=== PATIENT | male | born 1975 | race Caucasian/White ===

== ENCOUNTER → 2020-05-18 | Outpatient (CLI) | payer OTHER, SELFPAY ==
--- NOTE | ~2020-05-18 | MR_ITS ---
EXAMINATION: MR forearm LT wo/w con, MR wrist LT wo/w con DATE: 05/18/2020 14:38 INDICATION: Localized swelling, mass and lump at the radial aspect of the distal left forearm. TECHNIQUE: 1. Magnetic resonance imaging (MRI) of the left wrist was performed without and with 20 mL Multihance intravenous contrast. Sequences performed include axial PD-weighted FSE, PD-weighted FS FSE and T1-w eighted FSE, coronal PD-weighted FS FSE and T1-weighted SE, sagittal PD-weighted FS FSE and PD-weight ed FSE and postcontrast axial and coronal T1-weighted FS FSE . 2 . MRI of the left forearm was performed without and with 20 mL Multihance intravenous contrast util izing the same contrast bolus. Sequences included axial, sagittal and coronal T1-weighted FSE and T2- weighted FS FSE and postcontrast axial and coronal T1-weighted FS FSE. COMPARISON: Left wrist radiographs dated 04/26/2017 FINDINGS: Evaluation mildly limited by motion artifact or blurring to some degree on nearly all sequences inclu ding multiple repeated sequences. Intrinsic ligaments: The scapholunate and lunotriquetral ligaments are normal. Triangular fibrocartilage complex (TFCC): The triangular fibrocartilage including its foveal and styloid attachments as well as the dorsal and volar radioulnar ligaments are normal. The ulnotriquetral ligament is normal. The extensor carpi ulna ris tendon sheath is normal. Extensor wrist: There is mild fusiform thickening of the tensor carpi ulnaris tendon at the level of the tip of the u lnar styloid process as well as of the extensor pollicis brevis tendon at the level of the tip of the radial styloid process consistent with mild tendinopathy without discrete tear. Remaining extensor t endons of the wrist are normal. No tenosynovitis. Flexor wrist: The flexor tendons of the wrist are normal. No abnormality in the carpal tunnel with normal median n erve. Guyon's canal: Guyon's canal including the ulnar nerve and artery are normal. Bones/other: Bone alignment is normal. No fracture or avascular necrosis or pathologic marrow replacing process. S mall degenerative cyst versus erosion along the ulnar side of the proximal articular surface of the l unate. Mild osteoarthritis at the wrist, distal radioulnar and midcarpal joints. Musculature in the f inalized mid to distal forearm appears unremarkable. No abnormal masses or fluid collections identifi ed deep to the marker indicating the region of concern which lies along the radial margin of the dist al radius. No abnormally enhancing lesions identified at the left wrist or forearm. IMPRESSION: 1. Mild tendinopathy of the extensor carpi ulnaris and extensor pulses brevis tendons without discret e tears or tenosynovitis. 2. No abnormal masses, fluid collections or abnormally enhancing lesions identified to explain the re ported palpable abnormality along the radial aspect of the wrist/distal forearm. The marker indicatin g the region of concern overlies the region of fusiform thickening of the extensor pollicis brevis te ndon which could potentially account for the palpable abnormality. Reviewed, dictated and finalized at location A. 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 Mild tendinopathy of the extensor carpi ulnaris and extensor pulses brevis t endons without discrete tears or tenosynovitis. 2. No abnormal masses, fluid collections or abnormally enhancing lesions identi fied to explain the reported palpable abnormality along the radial aspect of th e wrist/distal forearm. The marker indicating the region of concern overlies th e region of fusiform thickening of the extensor pollicis brevis tendon which co uld potentially account for the palpable abnormality.
[2020-05-18 13:29] LABS: Estimated Glomerular Filt Rate > 60
== END | disposition home or self-care (01) ==
PROVIDERS: PCP Plastic Surgery; Visit Provider Plastic Surgery
DX: R22.32 Localized swelling, mass and lump, left upper limb (principal)
CPT/HCPCS: 73220; 73223; A9577

== ENCOUNTER 2020-07-06 12:20 | Outpatient (CLI) | payer OTHER, SELFPAY ==
--- NOTE | ~2020-07-06 | US_ITS ---
EXAMINATION: US wrist asp inj w image LT DATE: 07/06/2020 14:23 INDICATION: Dorsal compartment syndrome TECHNIQUE: A time-out was performed to verify the patient's name, date of , and procedure to b e performed. The procedure including the risks, benefits, and alternatives was discussed with the pat ietino. Risks discussed included bleeding, infection and allergic reaction. The patient understood the risks and agreed to proceed. The skin overlying the radial side of the left wrist was prepped and dr aped in usual sterile fashion. Anesthetic was administered with 1% lidocaine subcutaneously. Utilizi ng ultrasound guidance 25 G needle was advanced under fluoroscopic guidance into the the tendon sheat h of the first dorsal compartment and additional 0.5 mL of 1% lidocaine was injected into the small a mount of anechoic fluid surrounding the tendon. Subsequently a second 20 5G needle was advanced utili zing ultrasound guidance into the small tenosynovial fluid collection the first dorsal compartment an d 0.75 mL of 40 mg/mL and analog was injected for a total dose of 30 mg Kenalog. There were no immedi ate complications. FINDINGS: Real-time ultrasound images demonstrate a very small crescentic anechoic tear synovial fluid collecti on along side the extensor pollicis brevis tendon. Subsequent images demonstrate first the lidocaine needle and subsequently the needle for steroid injection within the small amount of tenosynovial flui d in the first dorsal compartment. IMPRESSION: 1. Successful ultrasound-guided injection of local anesthetic and steroid into the tendon sheath of t he first dorsal compartment where there was already a small amount of fluid consistent with mild teno synovitis. Reviewed, dictated and finalized at location A. DENTAL ASSISTANT IMPRESSION: 1. Successful ultrasound-guided injection of local anesthetic and steroid into the tendon sheath of the first dorsal compartment where there was already a sma ll amount of fluid consistent with mild tenosynovitis.
== END 2020-07-06 12:21 | disposition home or self-care (01) ==
LOC: ANHIMG 12:30
PROVIDERS: PCP Family Medicine Adolescent Medicine; Visit Provider Plastic Surgery
DX: T79.A12A Traumatic compartment syndrome of left upper extremity, initial encounter (principal)
CPT/HCPCS: 20606; J3301

== ENCOUNTER → 2022-02-18 11:58 | Outpatient (CLI) | payer OTHER, SELFPAY ==
--- NOTE | ~2022-02-18 | XR_ITS ---
EXAM: XR knee RT 2V DATE: 02/18/2022 12:08 HISTORY: M25.561 - Pain in right knee . COMPARISON: None available. FINDINGS: Normal mineralization. No fracture or dislocation. Subtle somewhat serpiginous, sclerotic opacities surrounding an area of relative lucency in the metadiaphysis of the distal right femur. Mil d medial joint space narrowing. Tricompartmental osteophytosis, mild in the medial and lateral compar tments and moderate in the patellofemoral compartment. No erosion or periosteal change. Small-volume joint fluid. IMPRESSION: Possible metadiaphyseal medullary lesion which may represent artifact, bone infarct or ot her lesion such as enchondroma, consider MRI of the distal right femur for further evaluation. Tricom partmental right knee osteoarthritis, moderate in the patellofemoral compartment. Reviewed, dictated and finalized at [facility]. IMPRESSION: Possible metadiaphyseal medullary lesion which may represent artifa ct, bone infarct or other lesion such as enchondroma, consider MRI of the dista l right femur for further evaluation. Tricompartmental right knee osteoarthriti s, moderate in the patellofemoral compartment.
== END ==
PROVIDERS: PCP Family Medicine Adolescent Medicine; Visit Provider Physician Assistant
DX: M25.561 Pain in right knee (principal); M17.11 Unilateral primary osteoarthritis, right knee
CPT/HCPCS: 73560

== ENCOUNTER 2022-03-04 12:19 | Outpatient (CLI) | payer OTHER, SELFPAY ==
--- NOTE | ~2022-03-04 | MR_ITS ---
EXAMINATION: MR femur RT wo/w con DATE: 03/04/2022 13:45 INDICATION: Right knee pain. Abnormal right knee x-ray. TECHNIQUE: Magnetic resonance imaging (MRI) of the right thigh was performed without and with 20 mL M ultihance intravenous contrast. Sequences included axial, sagittal and coronal T1-weighted FSE; axia l, sagittal and coronal fluid sensitive FSE STIR T2-weighted FS FSE, axial T1-weighted FS FSE and pos t contrast axial, sagittal and coronal T1-weighted FS FSE were also obtained. The contralateral left thigh is included on the coronal images. The proximal femur cephalad to the lesser trochanters are ex cluded from the [id number]. COMPARISON: Right knee radiograph dated 02/18/2022 FINDINGS: There are bone infarcts in the distal metaphyses and distal diaphyses of the left and right femurs ch aracterized by a peripheral serpiginous pattern of low signal and high T2 signal with central T1 hype rintense saturating fatty marrow. No other concerning bone lesions identified. Physiologic amount flu id in the bilateral knee joints. Assessment of the knee is limited relative to a standard MRI of the knee due to the significantly larger sqrnv-of-fmol of imaging and the location of the knee at the per iphery of the field of imaging which increases some magnetic benitez artifact. There is no evident int ernal derangement with intact appearing menisci and stabilizing ligaments. There is some high-grade c hondromalacia with subarticular cystic change along the lateral patellar facets at the right knee. Th ere is increased signal at the superficial suprapatellar fat pad at the right knee which can be seen with fat pad impingement syndrome. Normal muscle signal and no asymmetric muscle atrophy at the bilat eral thighs. No abnormally enhancing lesions identified. IMPRESSION: 1. 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 2. 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 3. Increased signal at the right superficial suprapatellar fat pad which can be seen with fat pad imp ingement syndrome. Reviewed, dictated and finalized at location B. IMPRESSION: 1. Bone infarcts in the distal diaphyseal and metaphyseal regions of the bilate ral femurs which accounts for the appearance of concern on the prior radiograph s. 2. 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 3. Increased signal at the right superficial suprapatellar fat pad which can be seen with fat pad impingement syndrome.
== END 2022-03-04 12:20 | disposition home or self-care (01) ==
LOC: ANHIMG 12:34
PROVIDERS: PCP Family Medicine Adolescent Medicine; Visit Provider Physician Assistant
DX: M22.41 Chondromalacia patellae, right knee (principal); M87.9 Osteonecrosis, unspecified
CPT/HCPCS: 73720; A9577

== ENCOUNTER → 2023-02-24 13:43 | Outpatient (CLI) | payer OTHER, SELFPAY ==
--- NOTE | ~2023-02-24 | XR_ITS ---
Clinical Indication: Abnormal chest x-ray PA and lateral views of the chest: Comparison: None Findings: The lungs are clear, without evidence of focal consolidation or pleural effusion. Cardiome diastinal silhouette is within normal limits. Bones and soft tissues are unremarkable. Impression: Normal chest. Reviewed, dictated and finalized at [facility]. Impression: Normal chest.
== END ==
PROVIDERS: PCP Family Medicine Adolescent Medicine; Visit Provider Family Medicine Adolescent Medicine
DX: R91.8 Other nonspecific abnormal finding of lung field (principal)
CPT/HCPCS: 71046

== ENCOUNTER → 2023-04-17 15:44 | Outpatient (CLI) | payer OTHER, SELFPAY ==
--- NOTE | ~2023-04-17 | XR_ITS ---
EXAMINATION: XR abdomen/kub 1V DATE: 04/17/2023 16:46 INDICATION: 5 days of right-sided abdominal pain TECHNIQUE: A supine view of the abdomen on 2 radiographs was obtained. COMPARISON: None. FINDINGS: Moderate amount of stool scattered throughout the colon. No dilated loops of gas-filled bowel to sugg est obstruction.. No evident urolithiasis. Visualized portions of the lung bases are clear. Moderate to severe lower lumbar facet osteoarthritis. IMPRESSION: 1. Normal bowel gas pattern. Reviewed, dictated and finalized at location A. 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
== END ==
PROVIDERS: PCP Family Medicine Adolescent Medicine; Visit Provider Family Medicine Adolescent Medicine
DX: R10.9 Unspecified abdominal pain (principal)
CPT/HCPCS: 74018

== ENCOUNTER 2024-02-28 07:50 | Outpatient (CLI) | payer OTHER, SELFPAY ==
--- NOTE | ~2024-02-28 | US_ITS ---
US abdomen limited INDICATION: Right upper quadrant pain PROCEDURE: Realtime right upper abdominal ultrasound. COMPARISON: No prior studies for comparison. FINDINGS: The pancreas is normal without focal mass or pancreatic ductal dilation. There is a focal echogenic 1.2 cm liver mass. There is normal directional flow in the portal vein. The gallbladder is normal without stones, gallbladder wall thickening or pericholecystic fluid. Comm on bile duct measures 4 mm. No sonographic Thao's sign. IMPRESSION: 1: Echogenic 1.2 cm liver mass. In the absence of known malignancy this likely represents a benign he mangioma. If there is known malignancy, correlation with dynamic contrast-enhanced CT or MRI recommen ded. Reviewed, dictated and finalized at location B. IMPRESSION: 1: Echogenic 1.2 cm liver mass. In the absence of known malignancy this likely represents a benign hemangioma. If there is known malignancy, correlation with dynamic contrast-enhanced CT or MRI recommended.
== END 2024-02-28 07:51 | disposition home or self-care (01) ==
PROVIDERS: PCP Family Medicine Adolescent Medicine; Visit Provider Family Medicine
DX: R16.0 Hepatomegaly, not elsewhere classified (principal)
CPT/HCPCS: 76705

== ENCOUNTER 2024-03-25 00:40 | Day surgery (SDC) | payer OTHER, SELFPAY ==
[2024-03-13 15:16] VITALS: BMI 38.0
[2024-03-25 10:00] VITALS: BP 123/75; PULSE 84; RESP 16; TEMP 36.1; O2SAT 100; BMI 37.5
[2024-03-25] MEDS: LACTATED RINGERS 1,000 ML 150 ML IV CONT (10:28)
--- NOTE | 2024-03-25 10:49 | P.PNAN_ITS ---
Anes - Initial Pre Proc Eval Procedure: Operation Date: 03/25/24 11:00 Proposed Procedures p Esophagogastroduodenoscopy & Colonoscopy - Burt Lawrence MD Date/Time: 03/25/24 10:49 Surgeon: Burt Lawrence MD Pre Op Diagnosis: RUQP/ neoplasm screening Patient Data Age: 48 Gender: M Height: 1.83 m Weight: 125.4 kg Last Vital Signs Temp 36.1 C L 03/25/24 10:00 Pulse 84 03/25/24 10:00 Resp 16 03/25/24 10:00 BP 123/75 03/25/24 10:00 Pulse Ox 100 03/25/24 10:00 O2 Del Method Room Air 03/25/24 10:00 Allergies Allergy/AdvReac Type Severity Reaction Status Date / Time diclofenac AdvReac Intermediate rash Verified 03/25/24 10:04 Home Medications Medication Instructions Recorded Confirmed Type tadalafil 5 mg tablet (Cialis) 5 mg PO DAILY PRN sexual activity 08/27/23 03/25/24 Rx #30 tabs cyclobenzaprine 10 mg tablet 10 mg PO TID PRN muscle spasm #20 02/28/24 03/25/24 Rx tabs ketoconazole 2 % topical cream 2 applic topical BID 03/13/24 03/25/24 History thiamine HCl (vitamin B1) 250 mg 250 mg PO DAILY 03/13/24 03/25/24 History tablet vitamin D3 125 mcg (5,000 2 cap PO DAILY 03/13/24 03/25/24 History unit)-vitamin K2 180 mcg capsule (K2-D3 Max) ketoconazole 2 % shampoo See Rx Instructions .Route 03/21/24 03/25/24 Rx .COMPLEX #120 mL lorazepam 1 mg tablet See Rx Instructions PO DAILY 03/25/24 03/25/24 History Anxiety Patient hx anesthesia problems: none Family hx anesthesia problems: none Results Review: All pre-operative results and documents have been reviewed as part of the pre- operative evaluation. [facility]LY [facility] Past Medical History Medical History (Updated 03/25/24 @ 10:50 by Iván Bone MD) Claustrophobia Family history of liver cancer Generalized anxiety disorder History of gout Liver lesion Surgical History Surgical History History of appendectomy 1986 Family History Family History Father Diabetes mellitus Acute myocardial infarction Heart disease Depression Family history of arthritis Hypertension Mother Pulmonary embolus Benign brain tumor Asthma Family history of arthritis Grandparent Acute myocardial infarction Other Arthritis Hyperlipidemia Social History Social History Smoking packs per day: 3 Smoking cigarettes per day: 60.0 Smoking status: Former smoker Tobacco type: cigarettes Second hand tobacco smoke exposure: No Smoking end date: 06/10/05 Alcohol intake: current Drinks per week: 24 Substance use: never Substance use type: does not use Living arrangements: with family Occupation/Education: occupation Gender identity (if verbalized by the patient): Male Sexual Orientation (if Verbalized by the Patient): Straight or Heterosexual Spiritual care concerns: No Agree to blood products: Yes Anes - Eval Final PreProcedure Day of Procedure 03/25/24 10:49 Patient weight: obese Heart: regular rate and rhythm Lungs: clear to auscultation Airway: Mallampati scale class II Neurological: alert and oriented Last oral intake: >/= 8 hours ASA classification: III Emergent: no Anesthetic plan: proceed Anesthesia type and monitoring: general GIVS and standard monitoring Results Review: All pre-operative results and documents have been reviewed as part of the pre- operative evaluation. Informed Consent: The patient's anesthetic plan and its attendant risks and benefits were discussed with the patient/family/POA. Questions were solicited and answers provided to the satisfaction of the patient/family/POA.
--- NOTE | 2024-03-25 11:38 | PM.IMHP ---
H&P: HPI History of Present Illness Date/Time: 03/25/24 11:38 Chief Complaint: Abdominal pain -screening colonoscopy Narrative: this patient has be seen in our office for recurrent right upper quadrant pain of unclear etiology. In addition, the patient has never had a colonoscopy and is in the right age group for his 1st screening colonoscopy. [facility] Past Medical History Medical History (Updated 03/25/24 @ 11:40 by Burt Lawrence MD) Claustrophobia Family history of liver cancer Generalized anxiety disorder History of gout Liver lesion Surgical History Surgical History History of appendectomy 1986 Family History Family History Father Diabetes mellitus Acute myocardial infarction Heart disease Depression Family history of arthritis Hypertension Mother Pulmonary embolus Benign brain tumor Asthma Family history of arthritis Grandparent Acute myocardial infarction Other Arthritis Hyperlipidemia Social History Social History Smoking packs per day: 3 Smoking cigarettes per day: 60.0 Smoking status: Former smoker Tobacco type: cigarettes Second hand tobacco smoke exposure: No Smoking end date: 06/10/05 Alcohol intake: current Drinks per week: 24 Substance use: never Substance use type: does not use Living arrangements: with family Occupation/Education: occupation Gender identity (if verbalized by the patient): Male Sexual Orientation (if Verbalized by the Patient): Straight or Heterosexual Spiritual care concerns: No Agree to blood products: Yes Meds Home Medications and Allergies Home Medications Medication Instructions Recorded Confirmed Type tadalafil 5 mg tablet (Cialis) 5 mg PO DAILY PRN sexual activity 08/27/23 03/25/24 Rx #30 tabs cyclobenzaprine 10 mg tablet 10 mg PO TID PRN muscle spasm #20 02/28/24 03/25/24 Rx tabs ketoconazole 2 % topical cream 2 applic topical BID 03/13/24 03/25/24 History thiamine HCl (vitamin B1) 250 mg 250 mg PO DAILY 03/13/24 03/25/24 History tablet vitamin D3 125 mcg (5,000 2 cap PO DAILY 03/13/24 03/25/24 History unit)-vitamin K2 180 mcg capsule (K2-D3 Max) ketoconazole 2 % shampoo See Rx Instructions .Route 10/31/24 11/04/24 Rx .COMPLEX #120 mL lorazepam 1 mg tablet See Rx Instructions PO DAILY 03/25/24 03/25/24 History Anxiety Allergies Allergy/AdvReac Type Severity Reaction Status Date / Time diclofenac AdvReac Intermediate rash Verified 03/25/24 10:04 Vital Signs Vital Signs - 24 hr 03/25/24 10:00 Temperature 96.9 F L Pulse Rate 84 Respiratory Rate 16 Blood Pressure 123/75 Pulse Oximetry 100 Oxygen Delivery Room Air Assessment and Plan Assessment and plan (1) Abdominal pain, RUQ (right upper quadrant): Code(s): R10.11 - Right upper quadrant pain Status: Acute Assessment and Plan: The patient is deemed a good candidate for the procedures. Consent signed. Will proceed. (2) Screening for malignant neoplasm of colon: Code(s): Z12.11 - Encounter for screening for malignant neoplasm of colon Status: Acute
[2024-03-25] MEDS: BENZOCAINE (*SP) 60 ML SPRAY CAN (HURRICAINE) 1 SPRAY MUCOUS MEM (12:06)
--- NOTE | 2024-03-25 12:06 | SUR.OPER ---
EGD END 1200 COLONOSCOPY START 1208
[2024-03-25 13:50] VITALS: BP 111/75; PULSE 70; RESP 16; O2SAT 100
[2024-03-25 14:00] VITALS: BP 137/95; PULSE 78; RESP 18; O2SAT 100
[2024-03-25 14:10] VITALS: BP 141/86; PULSE 60; RESP 19; O2SAT 100
--- NOTE | 2024-03-25 15:20 | SUR.PHASEII ---
Pt stated will have MRI in coming month. Pt given MRI clip safety sheet and educated on informing MRI staff of clips placed in colon. Pt stated understanding.
== END 2024-03-25 14:44 | disposition home or self-care (01) ==
PROVIDERS: PCP Family Medicine Adolescent Medicine; Referring Provider Nurse Practitioner Family; Visit Provider Internal Medicine Gastroenterology
PROC: 0DJ08ZZ Inspection of Upper Intestinal Tract, Via Natural or Artificial Opening Endoscopic (ICD-10-PCS; CPT 43235; principal; 2024-03-25 11:00)
DX: Z12.11 Encounter for screening for malignant neoplasm of colon (principal); D12.2 Benign neoplasm of ascending colon; D12.5 Benign neoplasm of sigmoid colon; D12.7 Benign neoplasm of rectosigmoid junction; K57.30 Diverticulosis of large intestine without perforation or abscess without bleeding; K22.70 Barrett's esophagus without dysplasia; K62.1 Rectal polyp; K29.50 Unspecified chronic gastritis without bleeding; K31.89 Other diseases of stomach and duodenum; F40.240 Claustrophobia; F41.9 Anxiety disorder, unspecified; K76.9 Liver disease, unspecified; E66.9 Obesity, unspecified; Z68.37 Body mass index [BMI] 37.0-37.9, adult; Z98.890 Other specified postprocedural states; Z87.891 Personal history of nicotine dependence; Z80.0 Family history of malignant neoplasm of digestive organs; Z82.49 Family history of ischemic heart disease and other diseases of the circulatory system
CPT/HCPCS: 43239; 45390; 45381; 88305; J2003; J2704; J7120

== ENCOUNTER 2024-05-02 15:28 | Outpatient (CLI) | payer OTHER, SELFPAY ==
--- NOTE | ~2024-05-02 | MR_ITS ---
EXAMINATION: MR abdomen wo/w con DATE: 05/02/2024 16:20 INDICATION: Liver disease, unspecified. Liver mass. TECHNIQUE: Magnetic resonance imaging (MRI) of the abdomen was performed without and with 20 mL Multi Romain intravenous contrast. COMPARISON: Abdomen ultrasound 02/28/2024 FINDINGS: There is a 13 mm mass right hepatic lobe with interrupted peripheral puddling of contrast, consistent with a hemangioma. The gallbladder, spleen, pancreas, adrenal glands, and kidneys are normal. There are no dilated loops of bowel. There are no pathologically enlarged lymph nodes. There is no free int raperitoneal fluid. IMPRESSION: 1. 13 mm hemangioma in the liver. Reviewed, dictated and finalized at location A. ER CASING
== END 2024-05-02 15:29 | disposition home or self-care (01) ==
PROVIDERS: PCP Family Medicine Adolescent Medicine; Visit Provider Nurse Practitioner Family
DX: D18.03 Hemangioma of intra-abdominal structures (principal); K76.9 Liver disease, unspecified
CPT/HCPCS: 74183; A9577

== ENCOUNTER 2024-06-04 16:41 | Outpatient (CLI) | payer OTHER, SELFPAY ==
--- NOTE | ~2024-06-04 | XR_ITS ---
XR wrist LT min 3V Ordering provider: Bryce Garrido MD History: . M25.532 - Pain in left wrist . Comparison: None. FINDINGS: BONES: No definite acute fracture or dislocation. No definite scaphoid fracture. Lucency is seen pos teriorly in the lateral view in the triquetral bone. Evaluation for tenderness in the area advised. JOINT SPACES: Well maintained. SOFT TISSUES: Normal. IMPRESSION: No definite acute osseous abnormality left wrist. Possible lucency in the posterior triquetral bone. Clinical correlation advised. Reviewed, dictated and finalized at location A. SUPERVISING TECHNICAL OPERATOR IMPRESSION: No definite acute osseous abnormality left wrist. Possible lucency in the poste rior triquetral bone. Clinical correlation advised.
== END 2024-06-04 16:42 | disposition home or self-care (01) ==
PROVIDERS: PCP Family Medicine Adolescent Medicine; Visit Provider Plastic Surgery
DX: M25.532 Pain in left wrist (principal)
CPT/HCPCS: 73110

== ENCOUNTER 2024-06-28 12:57 | Outpatient (CLI) | payer OTHER, SELFPAY ==
--- NOTE | ~2024-06-28 | MR_ITS ---
EXAMINATION: MR wrist LT wo/w con DATE: 06/28/2024 14:04 INDICATION: Evaluate left wrist infection versus gout or pseudogout. TECHNIQUE: Magnetic resonance imaging (MRI) of the left wrist was performed without intravenous contr ast. Sequences performed include axial PD-weighted FSE and PD-weighted FS FSE, coronal PD-weighted FS FSE and T1-weighted SE, and sagittal PD-weighted FS FSE and PD-weighted FSE. COMPARISON: None FINDINGS: Intrinsic ligaments: The dorsal and central components of the scapholunate ligament are normal. There is a partial tear of the volar component of the scapholunate ligament. The lunotriquetral ligament is normal. Triangular fibrocartilage complex (TFCC): There is a partial thickness tear along the proximal articular surface of the radial side of the cent ral fibrocartilaginous disc of the triangular fibrocartilage complex. The radial, foveal and ulnar st yloid attachments remain intact. The dorsal and volar radioulnar ligaments are normal. The ulnar mary ateral ligament, ulnotriquetral ligament and meniscal homologue are normal. The extensor carpi ulnari s tendon sheath is normal. Extensor wrist: Mild tenosynovitis and the first dorsal compartment with tendinopathy and partial split tearing of th e abductor pollicis longus tendon distal to the level of the radial styloid process. There is associa adebayo tendinopathy and longitudinal split tearing of the tendon. The remaining extensor tendons of the wrist are normal. Flexor wrist: The flexor tendons of the wrist are normal. No abnormality in the carpal tunnel with normal median n erve. Guyon's canal: Guyon's canal including the ulnar nerve and artery are normal. Bones/other: Bone alignment is normal. No fracture or pathologic marrow replacing process. Subarticular cystic nic nge at the ulnar side of the proximal articular surface of the lunate adjacent to be previous noted p artial tear of the triangular fibrocartilage, both findings which can be seen in the setting of ulnoc arpal impaction. Mild osteoarthritis with mild partial-thickness cartilage loss resulting in mild non uniform joint space narrowing at the distal radioulnar joint. Joint spaces are otherwise normal with no focal cartilage defects appreciated. No cortical erosions. There is diffuse enhancing synovitis th roughout the midcarpal joint without associated joint effusion. IMPRESSION: 1. Nonspecific enhancing synovitis throughout the midcarpal joint. 2. Tenosynovitis in the first dorsal compartment with tendinopathy and longitudinal split tearing of the abductor pollicis longus tendon. 3. Partial tear of the central fibrocartilaginous disc of the triangular fibrocartilage complex and s ubarticular cystic change along the ulnar side of the lunate, both findings which can be seen in sett ing of ulnocarpal impaction. 4. Mild distal radioulnar joint osteoarthritis. Reviewed, dictated and finalized at location B. [facility] IMPRESSION: 1. Nonspecific enhancing synovitis throughout the midcarpal joint. 2. Tenosynovitis in the first dorsal compartment with tendinopathy and longitud inal split tearing of the abductor pollicis longus tendon. 3. Partial tear of the central fibrocartilaginous disc of the triangular fibroc artilage complex and subarticular cystic change along the ulnar side of the barbara ate, both findings which can be seen in setting of ulnocarpal impaction. 4. Mild distal radioulnar joint osteoarthritis.
--- OUTSIDE RECORDS SUMMARY | 2024-06-28 13:03 | XMS_ITS | Clinical Summary ---
Author Organization [employer] [facility] Address [address] [facility] Attn: Scarlet Prelude ADT [place] [address] Care Team Providers Care Marriage Counselor Minister Name Role Phone Unavailable Primary Care Provider Unavailabl e Allergies No known active allergies Medications ketoconazole (NIZORAL) 2 % Shampoo USE DIRECTED TWICE DAILY 120 mL 1 06/04/2022 1:24 PM COMPLIANCE TECHNICIAN 05/06/20 22 Active atorvastatin (LIPITOR) 20 mg tablet TAKE ONE TABLET BY MOUTH ONCE DAILY 90 Tablet 1 11/22/2022 11:56 AM CDT 11/21/19 23 Active indomethacin (INDOCIN) 50 mg capsule Take 1 Capsule (50 mg) by mouth 3 times daily. Administer with food or milk. 50 Capsule 12/06/2022 4:10 PM CDT 12/06/19 23 Active meloxicam (MOBIC) 7.5 mg tablet Take 1 Tablet (7.5 mg) by mouth daily. 30 Tablet 1 01/29/2023 1:09 PM CDT 01/27/20 23 Active cyclobenzaprin e (FLEXERIL) 10 mg tablet Take 1 Tablet (10 mg) by mouth 3 times daily as needed for spasm. 30 Tablet 06/10/2023 2:08 PM COMPLIANCE TECHNICIAN 06/08/19 24 Active HYDROcodone-ac etaminophen (NORCO) 5-325 mg tablet TAKE 1 TABLET BY MOUTH EVERY 6 HOURS NEEDED FOR PAIN 20 Tablet 06/10/2023 2:08 PM COMPLIANCE TECHNICIAN 06/08/19 24 Active naproxen (NAPROSYN) 500 mg tablet Take 1 Tablet (500 mg) by mouth 2 times daily as needed for pain 30 Tablet 06/10/2023 2:08 PM COMPLIANCE TECHNICIAN 06/08/19 24 Active tirzepatide (Mounjaro) 2.5 mg/0.5 mL Pen Injector Inject 2.5 mg by subcutaneous injection every 7 days. 2 mL 07/28/19 24 Active tadalafil (CIALIS) 5 mg tablet Take 1 Tablet (5 mg) by mouth 1 time daily as needed for sexual activity. 30 Tablet 10 12/24/2023 12:19 PM CDT 08/27/19 24 Active ketoconazole (NIZORAL) 2 % Cream Apply to the back of knees once daily until resolution 60 Gram 02/09/2024 4:28 PM CDT 02/09/20 24 Active nystatin (MYCOSTATIN) 100,000 unit/gram Cream APPLY TO THE AFFECTED AREAS TWICE DAILY UNTIL HEALING IS COMPLETE. 30 Gram 02/16/2024 3:10 PM CDT 02/16/20 24 Active LORazepam (ATIVAN) 1 mg tablet Take 1 tablet (1mg) by mouth in the morning and 2 tablets (2 mg) in the evening. 90 Tablet 5 06/20/2024 9:33 AM COMPLIANCE TECHNICIAN 03/21/20 24 Active cyclobenzaprin e (FLEXERIL) 10 mg tablet Take 1 Tablet (10 mg) by mouth 3 times daily as needed for muscle spasms. 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 90 Tablet 1 04/21/2024 12:00 PM COMPLIANCE TECHNICIAN 03/26/20 24 Active hydrocortisone (PROCTOZONE-HC ) 2.5 % cream with perineal applicator Apply rectally once daily as needed for hemorrhoids. 30 Gram 05/28/2024 11:37 AM COMPLIANCE TECHNICIAN 05/21/20 24 Active traMADoL (ULTRAM) 50 mg tablet Take 1 Tablet (50 mg) by mouth every 6 hours as needed FOR SEVERE PAIN. 7 Tablet 06/03/2024 6:06 PM COMPLIANCE TECHNICIAN 06/03/19 25 Active ibuprofen (MOTRIN) 800 mg tablet Take 1 Tablet (800 mg) by mouth 3 times daily. 60 Tablet 06/06/2024 11:04 AM COMPLIANCE TECHNICIAN 06/04/19 25 Active ketoconazole (NIZORAL) 2 % Shampoo USE 3 TIMES WEEKLY DIRECTED. 120 mL 1 06/20/2024 9:33 AM COMPLIANCE TECHNICIAN 06/19/19 25 Active ketoconazole (NIZORAL) 2 % Shampoo USE 3 TIMES WEEKLY DIRECTED. 120 mL 1 05/28/2024 11:37 AM COMPLIANCE TECHNICIAN 03/21/20 24 025 Discontinu ed(Reorder ) predniSONE (DELTASONE) 10 mg tablet Take 4 Tablets (40 mg) by mouth daily for 3 days, THEN 3 Tablets (30 mg) daily for 3 days, THEN 2 Tablets (20 mg) daily for 3 days, THEN 1 Tablet (10 mg) daily for 3 days. 30 Tablet 05/28/2024 11:37 AM COMPLIANCE TECHNICIAN 05/28/19 25 025 Social History Tobacco Use Types Packs/Day Years Used Date Smoking Tobacco: Never Assessed Sex and Gender Information Value Date Recorded Sex Assigned at Not on file Legal Sex Male 3:27 PM CDT Gender Identity Not on file Sexual Orientation Not on file Plan of Treatment Health Maintenance Due Date Last Done Comments DTAP/TDAP/TD VACCINES (1 - Tdap) 1993 HEPATITIS B VACCINES (1 of 3 - 19+ 3-dose series) 1993 COLORECTAL SCREENING 08/22/2019 Colorectal Cancer Screening 08/22/2019 FIT-DNA Q 3 years 08/22/2019 FIT/FOBT Q 1 year 08/22/2019 Flex Sig/CT Colonography Q 5 years 08/22/2019 INFLUENZA VACCINE (#1) 2023 PNEUMOCOCCAL VACCINE 0-64 YEARS Aged Out No longer eligible based on patient's age to complete this topic Insurance RX [employer] RX Member Subscriber Plan / Payer (Ef fective for All Dates) Name:CARLOS DE SANTIAGO Relation to Subscriber:Self Name:Carlos De Santiago Payer ID:Not on file Group ID:[id number] Type:RX Commercial Address: [place] RX [employer] (INTERNAL) [facility] [employer] (INTERNAL) [employer]
--- OUTSIDE RECORDS SUMMARY | 2024-06-28 13:03 | XMS_ITS ---
Author Organization [facility] Address [address] [place] [address] Care Team Providers Care Slot Shift Supervisor Name Role Phone Gregg Khan M.D. Primary Care Provider Loan Jamison Unavailable [phone] REASON FOR VISIT Orthotics - prior auth needed Encounters Encounter Location Date Provider Diagnosis 1 OF [facility] [address] [place] [address] 12/28/2022 Loan Sommers Plan Of Treatment No Information Progress Notes * Jose DE SANTIAGODOB: 5 (47 yo M)Acc No.[id number]:12/28/2022 Patient: Jose Jenkins :1975 A ge:47 Y S ex:Male Address:[address] [facility], [place], [address] * true * Date: Generated for Zoey allred/Karen/eTransmitting on: 0 06/28/2024 01:03 PM FLUX TUBE ATTENDANT
--- OUTSIDE RECORDS SUMMARY | 2024-06-28 13:03 | XMS_ITS | Patient Health Record ---
Author Organization [facility] Address [address] [place] [address] Care Team Providers Care Projector Booth Operator Name Role Phone Gregg Khan M.D. Primary Care Provider U Loan Martini Unavailable [phone] Allergies Allergen (clinical drug ingredient) Drug/Non Drug Allergy documented on EMR Reaction Allergy Type Onset Date Status diclofenac Diclofenac Unknown Drug Allergy Activ e Reason For Referral No Information Medications Medication SIG (Take, Route, Fr equency, Duration) Notes Start Date End Date Status LORazepam Active Meloxicam 7.5 MG 1 tablet Orally once a day for 30 days 01/26/2023 Active Social History Tobacco Use: Social History Observation Description Date Details (start date - stop date) Former Smoker NA - NA Tobacco Use/Smoking Question Answer Notes Are you a former smoker How long has it been since you last smoked? > 10 years Plan Of Treatment No Information Insurance Providers Payer Name Payer Address Payer Phone Subscriber Number Group Number Insured Name Patient Relationship to Insured Coverage Start Date Coverage End Date [facility] [address] [address] [place] [address] [id number] [phone] Jose De Santiago Self - patient is the insured Medical (General) History Medical History History ICD Code Gout Surgical History Surgery Date(Month/Year) Bone scrape to the left side of the grea t toe joint (1987)
--- OUTSIDE RECORDS SUMMARY | 2024-06-28 13:03 | XMS_ITS ---
Author Organization [facility] Address [email or web address] [facility] [address] [place] [address] Care Team Providers Care Butt Maker Name Role Phone Gregg Khan M.D. Primary Care Provider U rosylakeisha Matthieu Loan Unavailable [phone] Allergies Allergen (clinical drug ingredient) Drug/Non Drug Allergy documented on EMR Reaction Allergy Type Onset Date Status diclofenac Diclofenac Unknown Drug Allergy Activ e REASON FOR VISIT PF RT foot Medications Medication SIG (Take, Route, Fr equency, Duration) Notes Start Date End Date Status LORazepam Active Meloxicam 7.5 MG 1 tablet Orally once a day for 30 days 01/26/2023 Active Vital Signs Height 72 in 01/26/2023 Weight 275 lbs 01/26/2023 BMI 37.29 kg/m2 01/26/2023 Encounters Encounter Location Date Provider Diagnosis 1 OF [facility] [email or web address] [address] 01/26/2023 Loan Sommers Plantar fasciitis of right foot M72.2 ; Achilles tendinitis, left leg M76.62 ; Right foot pain M79.671 and Left foot pain M79.672 Assessments Encounter Date Diagnosis (ICD Code) Assessment Notes Treatment Notes Treatment Clinical Notes Section Notes 01/26/2023 Plantar fasciitis of right foot (ICD-10 - M72.2) Evaluation today included a review of medical history, review of systems, discussion of exam findings, and review of diagnoses and treatment options. Recommended that he continue doing the stretching exercises. He was advised to ice his heel at the end of the day. I discussed that the current orthotics he is using are not as supportive and he purchased prefabricated orthotics today. He was also given a prescription for meloxicam. He was advised to wear good supportive shoes. 01/26/2023 Achilles tendinitis, left leg (ICD-10 - M76.62) He was advised that the Achilles tendon can get inflamed depending on activity. He was advised to do the stretching exercises on the left foot. I discussed that the orthotics and meloxicam should help with the Achilles tendon as well. 01/26/2023 Right foot pain (ICD-10 - M79.671) 01/26/2023 Left foot pain (ICD-10 - M79.672) Plan Of Treatment Medication Medication Name Sig Start Date Stop Date Notes Meloxicam 7.5 MG 1 tablet Orally once a day for 30 days Treatment Notes Assessment Notes Plantar fasciitis of right foot Evaluati on today included a review of medical history, review of systems, discussion of exam findings, and review of diagnoses and treatment options. Recommended that he continue doing the stretching exercises. He was advised to ice his heel at the end of the day. I discussed that the current orthotics he is using are not as supportive and he purchased prefabricated orthotics today. He was also given a prescription for meloxicam. He was advised to wear good supportive shoes. Achilles tendinitis, left leg He was adv ised that the Achilles tendon can get inflamed depending on activity. He was advised to do the stretching exercises on the left foot. I discussed that the orthotics and meloxicam should help with the Achilles tendon as well. Next Appt Details Follow Up: prn, Reason: Procedure Notes * Category Sub-Category Detail Notes DME: Pre-hillary orthotics: Pre-hillary ortho tics were recommended today. , Patient was evaluated to determine correct size. , Patient advised the pre-hillary orthotics are available for purchase at the front counter attendant. , Patient instructed in method to gradually break-in the orthotics as necessary over 1-2 weeks.(Patient purchased) Progress Notes * Jose DE SANTIAGODOB: 5 (47 yo M)Acc No.[id number]:01/26/2023 Progress Notes Patient: Jose Jenkins Provider: Becky Sommers DPM :1975 A ge:47 Y S ex:Male Date:01/26/2023 Address:[address] [facility] Pcp:Gregg Khan M.D. Subjective: * Chief Complaints: * P F RT foot * HPI: M A assisting with visit:: HPI/Rooming: Madison barnhart. Jace white reason for visit:: Pain level: R ight foot: , -. Follow-up: [age] y/o male RTO for f/u of PF, at the last appt pt had an injection in the RT heel, was dispensed stretching exercises, advised to ice as needed and wear good supportive shoes and his OTC orthotics that he has at home. T mervat the pt reports that the flare subsided somewhat about 2 days following the injection, but he is still having substantial pain where the flare was hurting and it is tender to pressure and standing on it. Pt reports the pain is less than it was prior to the injection. He has been doing the stretches and wearing the orthotics, but not icing regularly recently b/c he has not had much swelling. Jazmin rucker also reports an issue with the LT foot, at the end of last week of pain in the achilles tendon on the LT foot. He had pain so intense he almost couldn't stand on it. He doesn't know of any event or injury that would have caused the pain. He says he woke up in the morning one day with pain that grew throughout the day. He has been icing it and taking OTC pain medication, and stretching, it has gotten better, and he is having no pain today. He reports a concave divot in the tendon, and also that this has happened before over the years, and it goes away in a few days with his at home tx, happening only 1-2 times per year.. * ROS: * MULTI-SYSTEM REVIEW:: History of falling or nearly falling within past 12 months d enies. A ny change in medications since last visit? d enies. A ny changes in medical history/hospitalizations? d enies. * Medical History: * Surgical History: B one scrape to the left side of the great toe joint (1987) * Hospitalization/Major Diagno stic Procedure: * Family History: Diabetes, cancer (liver, bone, lung). * Medications: T akingLORazepam Medication List reviewed and reconciled with the patientTaking LORazepam Medication List reviewed and reconciled with the patient * Allergies: D iclofenacno[Allergies Verified] Objective: * Vitals: W t:275 lbs, Wt-k.74 kg, Ht: 72 in, BMI:37.29 Index. * Examination: G eneral Examination: Constitutional / Appearance: N o acute distress , Well nourished, Appropriate personal hygiene. Mental status: C ooperative, Oriented to person, place and time, Mood and affect: normal, Judgement and intellect: normal with appropriate response to questions. Shoes today: W ork boots with orthotic inserts. Exam unchanged from prior visit: w ith no significant changes in appearance or condition of feet ,excluding the following findings noted on exam today: Right foot: Some continued discomfort with palpation of the plantar medial and central tubercles of the calcaneus. Negative lateral squeeze test of the calcaneus. No pain with palpation along the Achilles tendon or posterior tibial tendon. No acute discomfort with palpation along the course of the plantar fascia. Less than 10 degrees of ankle joint dorsiflexion noted with the knee extended, which increases with the knee flexed. Some discomfort along the heel with dorsiflexion of the foot against resistance. Left foot: Minimal discomfort with palpation along the course of the Achilles tendon. Small palpable posterior prominence of the calcaneus. No significant thickening of the Achilles tendon noted. Patient can dorsiflex and plantarflex ankle with minimal discomfort.. Assessment: * Assessment: 1. A chilles tendinitis, left leg - M76.62 2 . P lantar fasciitis of right foot - M72.2 (Primary) 3 . R ight foot pain - M79.671 4 . L eft foot pain - M79.672 Plan: * Treatment: 2. A chilles tendinitis, left leg Notes: He was advised that the Achilles tendon can get inflamed depending on activity. He was advised to do the stretching exercises on the left foot. I discussed that the orthotics and meloxicam should help with the Achilles tendon as well. * Procedures: D ME:: Pre-hillary orthotics: P re-hillary orthotics were recommended today. , Patient was evaluated to determine correct size. , Patient advised the pre-hillary orthotics are available for purchase at the front counter attendant. , Patient instructed in method to gradually break-in the orthotics as necessary over 1-2 weeks.(Patient purchased). * Procedure Codes: * Preventive Medicine: Counseling: C are goal follow-up plan: Above Normal BMI Follow-up L ifestyle education regarding diet * Follow Up: p rn * Images: * Sign off status: Completed true * Provider: Becky Sommers, DPM Date: 0 01/26/2023 Generated for Zoey allred/Karen/Judson on: 06/28/2024 01:02 PM M1 ARMOR CREWMAN History and Physical Notes * HPI (History of Present Illness) Category Sub-Category Detail Notes Category Not es Primary reason for visit: Follow-up: 47 y/o male RTO for f/u of P F, at the last appt pt had an injection in the RT heel, was dispensed stretching exercises, advised to ice as needed and wear good supportive shoes and his OTC orthotics that he has at home. Today the pt reports that the flare subsided somewhat about 2 days following the injection, but he is still having substantial pain where the flare was hurting and it is tender to pressure and standing on it. Pt reports the pain is less than it was prior to the injection. He has been doing the stretches and wearing the orthotics, but not icing regularly recently b/c he has not had much swelling. He also reports an issue with the LT foot, at the end of last week of pain in the achilles tendon on the LT foot. He had pain so intense he almost couldn't stand on it. He doesn't know of any event or injury that would have caused the pain. He says he woke up in the morning one day with pain that grew throughout the day. He has been icing it and taking OTC pain medication, and stretching, it has gotten better, and he is having no pain today. He reports a concave divot in the tendon, and also that this has happened before over the years, and it goes away in a few days with his at home tx, happening only 1-2 times per year. Pain level: Right foot: , 1-3 /1 0 MA assisting with visit: HPI/Rooming: Rama Examination Category Sub-Category Detail Notes Category Not es General Examination Mental status: Cooperative, Oriented to person, place and time, Mood and affect: normal, Judgement and intellect: normal with appropriate response to questions Shoes today: Work boots with orth otic inserts Exam unchanged from prior visit: with no significant changes in appearance or condition of feet , excluding the following findings noted on exam today: Right foot: Some continued discomfort with palpation of the plantar medial and central tubercles of the calcaneus. Negative lateral squeeze test of the calcaneus. No pain with palpation along the Achilles tendon or posterior tibial tendon. No acute discomfort with palpation along the course of the plantar fascia. Less than 10 degrees of ankle joint dorsiflexion noted with the knee extended, which increases with the knee flexed. Some discomfort along the heel with dorsiflexion of the foot against resistance. Left foot: Minimal discomfort with palpation along the course of the Achilles tendon. Small palpable posterior prominence of the calcaneus. No significant thickening of the Achilles tendon noted. Patient can dorsiflex and plantarflex ankle with minimal discomfort. Constitutional / Appearance: No acute di stress , Well nourished, Appropriate personal hygiene
--- OUTSIDE RECORDS SUMMARY | 2024-06-28 13:03 | XMS_ITS ---
Author Organization [facility] Address [address] [place] [address] Care Team Providers Care Auto Porter Name Role Phone Gregg Khan M.D. Primary Care Provider Loan Jamison Unavailable [phone] REASON FOR VISIT RT heel increased pain Encounters Encounter Location Date Provider Diagnosis 1 OF [facility] [address] [place] [address] 12/29/2022 Loan Sommers Plan Of Treatment No Information Progress Notes * Jose DE SANTIAGODOB: 5 (47 yo M)Acc No.[id number]:12/29/2022 Patient: Jose Jenkins :1975 A ge:47 Y S ex:Male Address:[address] [facility], [place], [address] * true * Date: Generated for Juan Diegoi brigida/Karen/eTransmitting on: 0 06/28/2024 01:02 PM FEED MIXER
--- OUTSIDE RECORDS SUMMARY | 2024-06-28 13:03 | XMS_ITS | Clinical Summary ---
Author Organization [facility] Address [address] [place] [address] Care Team Providers Care Gas Line Servicer Name Role Phone Gregg Khan MD Primary Care Provider [phone] Allergies Active Allergy Reactions Criticality Noted Date Comments Diclofenac Hives 10/01/2018 Sulindac Diarrhea,Itching 10/29/2018 Medications lorazepam 2 MG tablet 09/30/2018 Active tadalafil 20 MG tablet 04/29/2019 Active naproxen 500 MG tablet 05/14/2019 Active methocarbamol 750 MG Tab 07/14/2019 Active ketoconazole 2 % shampoo 07/22/2019 Active ULORIC 80 MG tablet 07/14/2019 Active Ginseng (GIN-ZING OR) Active Hospital, Clinic, or Other Facility Administered Medication Ordered Dose Route Frequency Start Date End Date Status methylPREDNISolone acetate (DEPO-MEDROL) injection 120 mgIndications:Lumbar foraminal stenosis,Sacroiliitis (CMS/HCC) 120 mg IM Once 07/31/2019 Active Active Problems Problem Noted Date Diagnosed Date Epidural lipomatosis 10/29/2018 Spinal stenosis of lumbar re gion, unspecified whether neurogenic claudication present 10/29/2018 Lumbar foraminal stenosis 10/29/2018 Sacroiliitis 10/29/2018 Lumbar degenerative disc disease 10/29/2018 Lumbar facet arthropathy 10/29/2018 Osteoporosis 10/01/2018 Radiculopathy, lumbar region 10/01/2018 Family History Medical History Relation Comments Bladder cancer Father Diabetes Father Heart Disease Father Pulmonary embolism Mother Relation Status Comments Father Mother Social History Tobacco Use Types Packs/Day Years Used Date Smoking Tobacco: Former Cigarettes Q uit: 2006 Smokeless Tobacco: Never Alcohol Use Standard Drinks/Week Comments Yes 70 (1 standard drink = 0.6 oz pu re alcohol) Sex and Gender Information Value Date Recorded Sex Assigned at Not on file Legal Sex Male 11:11 AM CDT Gender Identity Not on file Sexual Orientation Not on file Last Filed Vital Signs Vital Sign Reading Time Taken Comments Blood Pressure 143/98 08/06/2019 1:45 PM CDT Pulse 89 08/06/2019 1:34 PM CDT Temperature 36.8 C (98.3 F) 08/06/2019 12:55 PM CDT Respiratory Rate 18 08/06/2019 1:34 PM CDT Oxygen Saturation 97% 08/06/2019 1:34 PM CDT Inhaled Oxygen Concentration - - Weight 143.1 kg (315 lb 7.7 oz) 020 12:55 PM CDT Height 182.9 cm (6') 08/06/2019 12:55 PM CDT Body Mass Index 42.79 08/06/2019 12:55 PM CDT Plan of Treatment Health Maintenance Due Date Last Done Comments Colorectal Cancer Screening Colonoscopy (10 Years) 1975 Annual Physical 1977 Hepatitis C 1992 DTaP, Tdap and Td Vaccines ( 1 - Tdap) 1993 Hepatitis B Vaccines (1 of 3 - 19+ 3-dose series) 1993 COVID-19 Vaccine (2023-2 5 season) 2024 Influenza Adult (#1) 2024 Meningococcal B Vaccine Aged Out No l onger eligible based on patient's age to complete this topic Meningococcal Vaccine Aged Out No jacques day eligible based on patient's age to complete this topic Pneumococcal Vaccine: Pediat rics (0 to 5 Years) and At-Risk Patients (6 to 64 Years) Aged Out No longer eligible b ased on patient's age to complete this topic RSV Immunizations Under 20 Months Aged Out No longer eligible based on patient's age to complete this topic Insurance [employer] Care Teams Gas Line Servicer Relationship Specialty Start Date End Date Gregg Khan MD [address] [address] PCP - General FAMILY PRACTICE 10/01/18
== END 2024-06-28 12:58 | disposition home or self-care (01) ==
PROVIDERS: PCP Family Medicine Adolescent Medicine; Visit Provider Plastic Surgery
DX: M65.88 Other synovitis and tenosynovitis, other site (principal); S63.502A Unspecified sprain of left wrist, initial encounter; S66.912A Strain of unspecified muscle, fascia and tendon at wrist and hand level, left hand, initial encounter; S63.592A Other specified sprain of left wrist, initial encounter; X58.XXXA Exposure to other specified factors, initial encounter; M19.032 Primary osteoarthritis, left wrist
CPT/HCPCS: 73223; A9577

== ENCOUNTER 2024-09-02 00:26 | Day surgery (SDC) | payer OTHER, SELFPAY ==
[2024-08-26 10:30] VITALS: BMI 38.7
--- OUTSIDE RECORDS SUMMARY | 2024-09-02 00:29 | XMS_ITS | Continuity of Care Document ---
[facility] Organization [facility] Address [address] [place] [address] Phone Care Team Providers Care Flexo Operator Name Role Phone Jose Shepard Unavailable Unavailable Procedures Procedure Date Neuromuscular Re-Ed Therapeutic Exercise Manual Therapy Therapeutic Activities Therapeutic Exercise Progress Note Therapeutic Activities Neuromuscular Re-Ed Manual Therapy Neuromuscular Re-Ed Therapeutic Activities Manual Therapy Therapeutic Exercise Therapeutic Activities Neuromuscular Re-Ed Manual Therapy Neuromuscular Re-Ed Therapeutic Activities Manual Therapy Therapeutic Exercise Neuromuscular Re-Ed Therapeutic Activities Therapeutic Exercise Manual Therapy Therapeutic Activities Neuromuscular Re-Ed Manual Therapy OT Evaluation Low Complexity D-Ring Prefab Wrist Therapeutic Activities Manual Therapy Therapeutic Exercise Advance Directives Directive Yes / No Effective Date File Name No Information Encounters Encounter Description Practice Location Reason(s) For Visit Diagnoses Date Provider Providers [facility] [facility] [place], [place], [id number], tel:[phone] [place] No Information 1 Mccullough Jose. . [facility], [place], [place], [id number], tel:[phone] [place] No Information 1 Mccullough Jose. . [facility], [place], [id number], tel:[phone] [place] No Information 1 Mccullough Jose. . [facility], [place], [id number], tel:[phone] [place] No Information 1 Mcc[place]ough Jose. . [facility] [place] [address], [id number], tel:[phone] [place] No Information 1 Mccullough Jose. . [facility], [place], [id number], tel:[phone] [place] No Information 1 Mccullough Jose. . [facility] [place] [address], [id number], tel:[phone] [place] No Information 1 Mccullough Jose. . [facility], [place], [id number], tel:[phone] [place] No Information 1 Mccullough Jose. . Family History Family Member Type Diagnosis Age At Onset No Information Payers Payer name Insurance type Covered green party ID Claytona brandon(s) [facility] [id number] Social History Type Description Quantity Date Captured [...]
--- OUTSIDE RECORDS SUMMARY | 2024-09-02 00:29 | XMS_ITS | Clinical Summary ---
Author Organization [facility] Address [address] [place] [address] Care Team Providers Care Dispatcher Automobile Rental Name Role Phone Gregg Khan MD Primary Care Provider [phone] Allergies Active Allergy Reactions Criticality Noted Date [...] acetate (DEPO-MEDROL) injection 120 mgIndications:Lumbar foraminal stenosis,Sacroiliitis 120 mg IM Once 07/31/2019 Act warren Active Problems Problem Noted Date Diagnosed Date [...] - 19+ 3-dose series) 1993 COVID-19 Vaccine (1 - 2023-2 5 season) 2024 Zoster Vaccines (1 of 2) 2024 Meningococcal B Vaccine Aged Out No l onger eligible based on patient's age to complete this topic Meningococcal Vaccine Aged Out No jacques day eligible based on patient's age to complete this topic Pneumococcal Vaccine: Pediat rics (0 to 5 Years) and At-Risk Patients (6 to 49 Years) Aged Out No longer eligible b ased on patient's age to complete this topic RSV Immunizations Under 20 Months Aged Out No longer eligible based on patient's age to complete this topic Insurance [employer] [facility]ESS [facility] Care Teams Dispatcher Automobile Rental Relationship Specialty Start Date End Date Gregg Khan MD [phone] [address] PCP - General FAMILY PRACTICE 10/01/18
--- OUTSIDE RECORDS SUMMARY | 2024-09-02 00:29 | XMS_ITS | Patient Health Record ---
Author Organization [facility] Address [address] [place] [address] Care Team Providers Care Rubber Goods Inspector Name Role Phone Gregg Khan M.D. Primary Care Provider U Loan Martini Unavailable [phone] Allergies Allergen (clinical drug ingredient) Drug/Non Drug [...] Coverage Start Date Coverage End Date [facility] [address] [address] [place] [address] [id number] [phone] [place] Self - patient is the insured Medical (General) History Medical History History ICD Code Gout Surgical History Surgery Date(Month/Year) Bone scrape to the left side of the grea t toe joint (1987)
--- OUTSIDE RECORDS SUMMARY | 2024-09-02 00:29 | XMS_ITS | Clinical Summary ---
Author Organization [employer] Address [address] Attn: Scarlet Prelude [place]T [place] [address] Care Team Providers Care Call Out Operator Name Role Phone Unavailable Primary Care Provider Unavailabl e Allergies No known active allergies Medications ketoconazole (NIZORAL) 2 % Shampoo USE DIRECTED TWICE DAILY 120 mL 1 06/04/2022 1:24 PM METAL SORTER 2 Active atorvastatin (LIPITOR) 20 mg tablet TAKE ONE TABLET BY MOUTH ONCE DAILY 90 Tablet 1 11/22/2022 11:56 AM CDT 3 Active indomethacin (INDOCIN) 50 mg capsule Take 1 Capsule (50 mg) by mouth 3 times daily. Administer with food or milk. 50 Capsule 12/06/2022 4:10 PM CDT 3 Active meloxicam (MOBIC) 7.5 mg tablet Take 1 Tablet (7.5 mg) by mouth daily. 30 Tablet 1 01/29/2023 1:09 PM CDT 3 Active cyclobenzaprine (FLEXERIL) 10 mg tablet Take 1 Tablet (10 mg) by mouth 3 times daily as needed for spasm. 30 Tablet 06/10/2023 2:08 PM METAL SORTER 4 Active HYDROcodone-elva taminophen (NORCO) 5-325 mg tablet TAKE 1 TABLET BY MOUTH EVERY 6 HOURS NEEDED FOR PAIN 20 Tablet 06/10/2023 2:08 PM METAL SORTER 4 Active naproxen (NAPROSYN) 500 mg tablet Take 1 Tablet (500 mg) by mouth 2 times daily as needed for pain 30 Tablet 06/10/2023 2:08 PM METAL SORTER 4 Active tirzepatide (Mounjaro) 2.5 mg/0.5 mL Pen Injector Inject 2.5 mg by subcutaneous injection every 7 days. 2 mL 4 Active tadalafil (CIALIS) 5 mg tablet Take 1 Tablet (5 mg) by mouth 1 time daily as needed for sexual activity. 30 Tablet 10 12/24/2023 12:19 PM CDT 4 Active ketoconazole (NIZORAL) 2 % Cream Apply to the back of knees once daily until resolution 60 Gram 02/09/2024 4:28 PM CDT 4 Active nystatin (MYCOSTATIN) 100,000 unit/gram Cream APPLY TO THE AFFECTED AREAS TWICE DAILY UNTIL HEALING IS COMPLETE. 30 Gram 02/16/2024 3:10 PM CDT 4 Active LORazepam (ATIVAN) 1 mg tablet Take 1 tablet (1mg) by mouth in the morning and 2 tablets (2 mg) in the evening. 90 Tablet 5 08/18/2024 3:10 PM CDT 4 Active cyclobenzaprine (FLEXERIL) 10 mg tablet Take 1 Tablet (10 mg) by mouth 3 times daily as needed for muscle spasms. 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 90 Tablet 1 04/21/2024 12:00 PM METAL SORTER 4 Active hydrocortisone (PROCTOZONE-HC) 2.5 % cream with perineal applicator Apply rectally once daily as needed for hemorrhoids. 30 Gram 05/28/2024 11:37 AM METAL SORTER 4 Active traMADoL (ULTRAM) 50 mg tablet Take 1 Tablet (50 mg) by mouth every 6 hours as needed FOR SEVERE PAIN. 7 Tablet 06/03/2024 6:06 PM METAL SORTER 5 Active ibuprofen (MOTRIN) 800 mg tablet Take 1 Tablet (800 mg) by mouth 3 times daily. 60 Tablet 06/06/2024 11:04 AM METAL SORTER 5 Active ketoconazole (NIZORAL) 2 % Shampoo USE 3 TIMES WEEKLY DIRECTED. 120 mL 1 08/18/2024 3:10 PM CDT 5 Active meloxicam (MOBIC) 7.5 mg tablet Take 1 Tablet (7.5 mg) by mouth daily. 30 Tablet 08/05/2024 9:51 AM CDT Active terbinafine HCL (LamISIL) 250 mg tablet Take 1 Tablet (250 mg) by mouth daily. 20 Tablet 09/01/2024 10:45 AM CDT 5 Active Encounters Date Type Department Care Team Description 07/30/2024 External Device Data [facility] ABSTRACTION Provider, Abstract 07/30/2024 External Device Data [facility]STRACTION Provider, Abstract from Last 3 Months Social History Tobacco Use Types Packs/Day Years [...] 5 years 08/22/2019 INFLUENZA VACCINE (#1) 2023 ZOSTER VACCINE (1 of 2) 2024 PNEUMOCOCCAL VACCINE 0-49 YEARS Aged Out No longer eligible based on patient's age to complete this topic Insurance RX [employer] RX Member Subscriber Plan / Payer (Ef fective for All Dates) Name:JOSE DE SANTIAGO Relation to Subscriber:Self Name:Jose De Santiago Payer ID:Not on file Group ID:[id number] Type:RX Commercial Address: [place] [employer] (INTERNAL) [employer] (INTER[employer]) [employer]
[2024-09-02 07:20] VITALS: BP 134/87; PULSE 88; RESP 20; TEMP 36.4; O2SAT 98; BMI 39.9
[2024-09-02] MEDS: LACTATED RINGERS 1,000 ML 150 ML IV CONT (07:32)
--- NOTE | 2024-09-02 08:02 | WPDANESEPPF ---
Anes - Initial Pre Proc Eval Procedure: Operation Date: 09/02/24 08:30 Proposed Procedures p Colonoscopy - Maximiliano Mullen MD Date/Time: 09/02/24 08:02 Surgeon: Maximiliano Mullen MD Pre Op Diagnosis: hx of colon polyps Patient Data Age: 49 Gender: M Height: 1.83 m Weight: 133.4 kg Last Vital Signs Temp 97.5 F L 09/02/24 07:20 Pulse 88 09/02/24 07:20 Resp 20 09/02/24 07:20 BP 134/87 09/02/24 07:20 Pulse Ox 98 09/02/24 07:20 O2 Del Method Room Air 09/02/24 07:20 Allergies Allergy/AdvReac Type Severity Reaction Status Date / Time diclofenac AdvReac Intermediate rash Verified 09/02/24 07:18 Home Medications ?Medication ?Instructions ?Recorded ?Confirmed ?Type tadalafil 5 mg tablet (Cialis) 5 mg PO DAILY PRN sexual activity 08/27/23 08/26/24 Rx #30 tabs lorazepam 1 mg tablet See Rx Instructions PO DAILY 03/25/24 09/02/24 History Anxiety ketoconazole 2 % topical cream 2 applic topical BID 06/03/24 09/02/24 History tramadol 50 mg tablet 50 mg PO Q6H PRN pain, severe #7 06/03/24 08/26/24 Rx tabs ketoconazole 2 % shampoo See Rx Instructions .Route 06/19/24 09/02/24 Rx .COMPLEX #120 mL terbinafine HCl 250 mg tablet 250 mg PO DAILY #20 tabs 08/30/24 09/02/24 Rx Patient hx anesthesia problems: none Family hx anesthesia problems: none Results Review: All pre-operative results and documents have been reviewed as part of the pre-operative evaluation. [facility]LY [facility], [facility] Past Medical History Medical History Family history of liver cancer Liver lesion Claustrophobia History of gout Generalized anxiety disorder Surgical History Surgical History History of appendectomy 1986 Family History Family History Father Diabetes mellitus Acute myocardial infarction Heart disease Depression Family history of arthritis Hypertension Mother Pulmonary embolus Benign brain tumor Asthma Family history of arthritis Grandparent Acute myocardial infarction Other Arthritis Hyperlipidemia Social History Social History Smoking packs per day: 3 Smoking cigarettes per day: 60.0 Smoking status: Former smoker Tobacco type: cigarettes Second hand tobacco smoke exposure: No Smoking end date: 06/10/05 Alcohol intake: never Drinks per week: 24 Substance use: never Substance use type: does not use Living arrangements: with family Occupation/Education: occupation Gender identity (if verbalized by the patient): Male Sexual Orientation (if Verbalized by the Patient): Straight or Heterosexual Spiritual care concerns: No Agree to blood products: Yes Anes - Eval Final PreProcedure Day of Procedure 09/02/24 08:02 Patient weight: morbidly obese Heart: regular rate and rhythm Lungs: clear to auscultation Airway: Mallampati scale class II Neurological: alert and oriented Last oral intake: >/= 8 hours ASA classification: III Emergent: no Anesthetic plan: proceed Anesthesia type and monitoring: general GIVS and standard monitoring Results Review: All pre-operative results and documents have been reviewed as part of the pre-operative evaluation. Informed Consent: The patient's anesthetic plan and its attendant risks and benefits were discussed with the patient/family/POA. Questions were solicited and answers provided to the satisfaction of the patient/family/POA.
--- NOTE | 2024-09-02 08:11 | PM.HPGS ---
History of Present Illness History of Present Illness Consent: Risks, benefits, and alternatives have been discussed and questions answered. Patient agrees to proceed with procedure. Chief complaint: hx of colon polyps Narrative: Jose De Santiago is a 49 year old male with large TA polyps removed 03/2024 Review of Systems Review of Systems: All systems reviewed & are unremarkable except as noted in HPI and below PMFSH Past Medical History Medical History Family history of liver cancer Liver lesion Claustrophobia History of gout Generalized anxiety disorder Surgical History Surgical History History of appendectomy 1986 Family History Family History Father Diabetes mellitus Acute myocardial infarction Heart disease Depression Family history of arthritis Hypertension Mother Pulmonary embolus Benign brain tumor Asthma Family history of arthritis Grandparent Acute myocardial infarction Other Arthritis Hyperlipidemia Social History Social History Smoking packs per day: 3 Smoking cigarettes per day: 60.0 Smoking status: Former smoker Tobacco type: cigarettes Second hand tobacco smoke exposure: No Smoking end date: 06/10/05 Alcohol intake: never Drinks per week: 24 Substance use: never Substance use type: does not use Living arrangements: with family Occupation/Education: occupation Gender identity (if verbalized by the patient): Male Sexual Orientation (if Verbalized by the Patient): Straight or Heterosexual Spiritual care concerns: No Agree to blood products: Yes Meds Home Medications and Allergies Home Medications ?Medication ?Instructions ?Recorded ?Confirmed ?Type tadalafil 5 mg tablet (Cialis) 5 mg PO DAILY PRN sexual activity 08/27/23 08/26/24 Rx #30 tabs lorazepam 1 mg tablet See Rx Instructions PO DAILY 03/25/24 09/02/24 History Anxiety ketoconazole 2 % topical cream 2 applic topical BID 06/03/24 09/02/24 History tramadol 50 mg tablet 50 mg PO Q6H PRN pain, severe #7 06/03/24 08/26/24 Rx tabs ketoconazole 2 % shampoo See Rx Instructions .Route 06/19/24 09/02/24 Rx .COMPLEX #120 mL terbinafine HCl 250 mg tablet 250 mg PO DAILY #20 tabs 08/30/24 09/02/24 Rx Allergies Allergy/AdvReac Type Severity Reaction Status Date / Time diclofenac AdvReac Intermediate rash Verified 09/02/24 07:18 Vital Signs Vital Signs - 24 hr 09/02/24 07:20 Temperature 97.5 F L Pulse Rate 88 Respiratory Rate 20 Blood Pressure 134/87 Pulse Oximetry 98 Oxygen Delivery Room Air Exam Const: General: comfortable and no acute distress HENMT: Face/Nose/Sinus: Normal nares present Eyes: General: appearance normal, both eyes and all related structures Neck: Neck: no JVD Resp: Auscultation: clear to auscultation bilaterally Cardio: Rate: regular rate Rhythm: regular rhythm GI: Inspection: non-distended GI Palp: Yes Soft to palpation Skin: General skin exam: normal color Neuro: Speech: normal speech Extrem: General: normal to inspection Psych: Mental Status: mental status grossly normal Assessment and Plan Assessment and plan (1) Colon polyps: Code(s): K63.5 - Polyp of colon Status: Acute Assessment and Plan: colonoscopy
[2024-09-02 08:27] VITALS: BP 126/78; PULSE 85; RESP 16; O2SAT 96
[2024-09-02 08:37] VITALS: BP 130/90; PULSE 78; RESP 16; O2SAT 96
[2024-09-02 08:47] VITALS: BP 141/77; PULSE 75; RESP 17; O2SAT 99
== END 2024-09-02 08:56 | disposition home or self-care (01) ==
PROVIDERS: PCP Family Medicine Adolescent Medicine; Referring Provider Internal Medicine Gastroenterology; Visit Provider Internal Medicine Gastroenterology
PROC: 0DJD8ZZ Inspection of Lower Intestinal Tract, Via Natural or Artificial Opening Endoscopic (ICD-10-PCS; CPT 45378; principal; 2024-09-02 08:30)
DX: Z09 Encounter for follow-up examination after completed treatment for conditions other than malignant neoplasm (principal); D12.5 Benign neoplasm of sigmoid colon; K63.5 Polyp of colon; Z87.891 Personal history of nicotine dependence; E66.01 Morbid (severe) obesity due to excess calories; Z68.39 Body mass index [BMI] 39.0-39.9, adult
CPT/HCPCS: 45380; 45385; 88305; J2003; J2704; J7120

== ENCOUNTER 2024-12-06 08:57 | Outpatient (CLI) | payer OTHER, SELFPAY ==
--- NOTE | ~2024-12-06 | XR_ITS ---
[XR ribs RT 2V w CXR 2V ] INDICATION: Pleurodynia TECHNIQUE: Frontal projection of the upper right ribs, frontal projection of the lower right ribs, ob lique projection of all the right ribs, frontal inspiratory chest x-ray for interpretation. FINDINGS: There are no acute displaced rib fractures identified. There is a healed right ninth rib f racture. There are no soft tissue abnormality seen. The lungs are clear. IMPRESSION: 1:No acute displaced rib fractures. Reviewed, dictated and finalized at location A.
== END 2024-12-06 08:58 | disposition home or self-care (01) ==
PROVIDERS: PCP Family Medicine Adolescent Medicine; Visit Provider Family Medicine
DX: R07.81 Pleurodynia (principal)
CPT/HCPCS: 71046; 71100

== ENCOUNTER 2025-02-26 00:08 | Day surgery (SDC) | payer OTHER, SELFPAY ==
--- OUTSIDE RECORDS SUMMARY | 2020-06-23 06:30 | XMS_ITS | Continuity of Care Document ---
Author Organization [facility] Address [address] [place] [address] Phone Care Team Providers Care Hose Stripper Name Role Phone Jose Yen Unavailable Unavailable Procedures Procedure Date Manual Therapy Therapeutic Exercise Neuromuscular Re-Ed Therapeutic Activities Progress Note Therapeutic Activities Manual Therapy Therapeutic Exercise Neuromuscular Re-Ed Therapeutic Activities Neuromuscular Re-Ed Therapeutic Exercise Manual Therapy Manual Therapy Neuromuscular Re-Ed Therapeutic Activities Therapeutic Exercise Neuromuscular Re-Ed Therapeutic Activities Manual Therapy Neuromuscular Re-Ed Therapeutic Activities Manual Therapy Therapeutic Exercise Therapeutic Activities Manual Therapy Neuromuscular Re-Ed OT Evaluation Low Complexity D-Ring Prefab Wrist Manual Therapy Therapeutic Exercise Therapeutic Activities Advance Directives Directive Yes / No Effective Date File Name No Information Encounters Encounter Description Practice Location Reason(s) For Visit Diagnoses Date Provider Providers Copied on Encounter [facility], [facility] [address], [place], [id number], tel:[phone] De Pere No Information 1 Jose Garcia. . [facility], [place], [id number], tel:[phone] De Pere No Information 1 Jose Garcia. . [facility], [id number], tel:[phone] De Pere No Information 1 Jose Garcia. . [facility], [id number], tel:[phone] De Pere No Information 1 Jose Garcia. . [facility] [place], [id number], tel:[phone] De Pere No Information 1 Jose Garcia. . [facility], [place], [id number], tel:[phone] De Pere No Information 1 Jose Garcia. . [facility], [place], [id number], tel:[phone] De Pere No Information 1 Jose Garcia. . [facility], [place], [id number], tel:[phone] De Pere No Information 1 Jose Garcia. . Family History Family Member Type Diagnosis Age At Onset No Information Payers Payer name Insurance type Covered alliance party ID Claytona brandon(s) [facility] [id number] Social History Type Description Quantity Date Captured Comments Sex Male Smoking Status No Information Chief Complaint And Reason For Visit No Information Reason For Referral Reason For Referral No Information Plan Of Treatment Date Type Action Status Referral Ordered: Referrals: Specialist. Evaluate and Treat (related to Adjustment disorder with depressed mood) ordered Referral Ordered: Clinical Psychology (related to Depression) ordered History Of Present Illness Encounter Date Complaint History Of Prese nt Illness No Information Functional Status Date Functional Assessmen t No Information Instructions Date Instruction Additional Infor jeremy Dietary needs education Related to Overweight Prescribed activity/exercise edu cation Related to Overweight Assessments Type Assessment Date No Information Patient Care Teams Name Effective Dates (start - stop) Status Members No Information
[2025-02-20 12:30] VITALS: BMI 35.7
--- NOTE | 2025-02-20 12:41 | SUR.PREOP ---
Addendum entered by Dulce Nicolas RN 02/20/25 15:53: No food or drink from midnight. Original Note: [facility] has started construction of its new state of the art ER which will open Spring 2026. With this, we anticipate parking may be a challenge for some our surgical patients and families. Parking spaces are limited but are available for all Surgical, obstetrics, and ER patients sharing this lot. If you arrive and find you are having a hard time finding a parking space, please note that we understand the challenges, please drive around the hospital and park near Hospital Entrance 1. When you enter this entrance, you can ask a volunteer to direct or take you back to the surgical waiting area to check in. We appreciate everyone?s understanding of these expected challenges while we build for your future. Report to the Outpatient Waiting Room, entrance under the green pavilion located off [facility], at time 0745 on date 02/26/25. Planned Procedure Time: 0945.? Time changes happen often and if your time is changed the preop area will call you the afternoon before. - You and your visitor will be asked to self-screen and do not enter if you have any COVID symptoms. Please call surgeon if you need to reschedule. - A mask is optional within the hospital at this time. - No food from midnight until time of surgery and no smoking, or chewing tobacco (or any form of nicotine). No chewing gum, candy or mints. Take only the following medications with a SIP of water on the morning of surgery: Lorazepam. DO NOT STOP ANY OF YOUR OTHER PRESCRIPTION MEDICATIONS PRIOR TO SURGERY EXCEPT THE FOLLOWING Hold all vitamins and supplements for 3 days per anesthesiologist. Medications to discontinue per physician __Hold Semaglutide until after surgery. Pt reports he spoke to the office for instructions on this medication. Date to take last dose 02/22/25. Please no make-up, nail malay, hairspray, perfume, deodorant, or body powder the day of surgery.? No jewelry (including any body piercings) or valuables the day of surgery, leave them at home.? Please take a shower or bath the night before, or the morning of, surgery with an antibacterial soap.? Wear comfortable, loose fitting clothing.? Children are encouraged to wear pajamas. - Jewelry must be removed prior to entering the operating room.? Rings and piercings that are not removed may be cut off. - The hospital will not accept responsibility for valuables.? - Please leave all valuables, including medications, at home the day of surgery. If you are going home after surgery, a licensed hammer driver must drive you home.? - NO public transportation without another adult if you receive anesthesia. - We recommend that an adult stay with you for 24 hours following discharge. - We also recommend that you do not drive, make important decision, drink alcoholic beverages, or take any drugs that were not prescribed by your health care provider for at least 24 hours after your discharge time. Follow any additional instructions given to you from your surgeon. Telephone instructions given to _Will_and asked if any additional questions and then verbalized understanding. Patient advised to call surgeon office or pre surgery nurse liaison [phone] if any additional questions.
--- OUTSIDE RECORDS SUMMARY | 2025-02-26 00:13 | XMS_ITS | Patient Health Record ---
Author Organization 1 OF Eber [facility]olled[facility] Address [address] [place] [address] Care Team Providers Care Flow Match Sofa Cutter Name Role Phone Gregg Khan M.D. Primary Care Provider U Loan Martini Unavailable [phone] Allergies Allergen (clinical drug ingredient) Drug/Non Drug Allergy documented on EMR Reaction Allergy Type Onset Date Status diclofenac Diclofenac Unknown Drug Allergy Activ e Reason For Referral No Information Medications Medication SIG (Take, Route, Fr equency, Duration) Notes Start Date End Date Status LORazepam Active Meloxicam 7.5 MG Tablet 1 tablet Orally once a day; Duration: 30 days 01/26/2023 Active Social History Tobacco Use: Social History Observation Description Date Details (start date - stop date) Former Smoker NA - NA Social History Tobacco Use: Social Info Question Answer Notes Tobacco Use/Smoking Are you a former smoker How long has it been since you last smoked? > 10 years Additional Details Category Social Info Options Details Miscellaneous: Exercise: Sedentary Occupation: Works full-time Living with: alone Drugs/Alcohol: Recreational drugs Patient denies recreational drug use Plan Of Treatment No Information Insurance Providers Payer Name Payer Address Payer Phone Subscriber Number Group Number Insured Name Patient Relationship to Insured Coverage Start Date Coverage End Date [facility] [address] [address] [place] [address] [id number] [phone] [place] Self - patient is the insured Medical (General) History Medical History History ICD Code Gout Surgical History Surgery Date(Month/Year) Bone scrape to the left side of the grea t toe joint (1987)
--- OUTSIDE RECORDS SUMMARY | 2025-02-26 00:13 | XMS_ITS | Clinical Summary ---
Author Organization [facility] Address [address] [facility] Attn: Scarlet Prelude [place] [address] Care Team Providers Care Special Warfare Operator Name Role Phone Unavailable Primary Care Provider Unavailabl e Allergies No known active allergies Medications ketoconazole (NIZORAL) 2 % Shampoo USE DIRECTED TWICE DAILY 120 mL 1 06/04/2022 1:24 PM TELECOMMUNICATION OPERATOR 2 Active atorvastatin (LIPITOR) 20 mg tablet [...] for spasm. 30 Tablet 06/10/2023 2:08 PM TELECOMMUNICATION OPERATOR 4 Active HYDROcodone-elva taminophen (NORCO) 5-325 mg tablet TAKE 1 TABLET BY MOUTH EVERY 6 HOURS NEEDED FOR PAIN 20 Tablet 06/10/2023 2:08 PM TELECOMMUNICATION OPERATOR 4 Active naproxen (NAPROSYN) 500 mg tablet Take 1 Tablet (500 mg) by mouth 2 times daily as needed for pain 30 Tablet 06/10/2023 2:08 PM TELECOMMUNICATION OPERATOR 4 Active tirzepatide (Mounjaro) 2.5 mg/0.5 mL [...] Gram 02/16/2024 3:10 PM CDT 4 Active cyclobenzaprine (FLEXERIL) 10 mg tablet Take 1 Tablet (10 mg) by mouth 3 times daily as needed for muscle spasms. 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 90 Tablet 1 04/21/2024 12:00 PM TELECOMMUNICATION OPERATOR 4 Active hydrocortisone (PROCTOZONE-HC) 2.5 % cream with perineal applicator Apply rectally once daily as needed for hemorrhoids. 30 Gram 05/28/2024 11:37 AM TELECOMMUNICATION OPERATOR 4 Active ibuprofen (MOTRIN) 800 mg tablet Take 1 Tablet (800 mg) by mouth 3 times daily. 60 Tablet 06/06/2024 11:04 AM TELECOMMUNICATION OPERATOR 5 Active meloxicam (MOBIC) 7.5 mg tablet Take 1 Tablet (7.5 mg) by mouth daily. 30 Tablet 08/05/2024 9:51 AM CDT 5 Active terbinafine HCL (LamISIL) 250 mg tablet Take 1 Tablet (250 mg) by mouth daily. 20 Tablet 09/01/2024 10:45 AM CDT 5 Active itraconazole (SPORANOX) 100 mg capsule Take one capsule (100 mg) orally twice a day; must administer with a meal/food 40 Capsule 5 Active triamcinolone acetonide (KENALOG) 0.1 % Cream Apply topically twice a day as needed for eczema for 2 - 4 weeks. You may need intermittent application once daily for 2 days per week for maintenance. 80 Gram 12/03/2024 11:14 AM CDT 5 Active semaglutide (Ozempic) 0.25 mg or 0.5 mg (2 mg/3 mL) Pen Injector Inject 0.25 mg by subcutaneous injection every 7 days. 3 mL 5 Active LORazepam (ATIVAN) 1 mg tablet TAKE 1 TABLET BY MOUTH IN THE MORNING AND 2 TABLETS IN THE EVENING FOR ANXIETY. 90 Tablet 2 02/20/2025 10:59 AM CDT 5 Active Social History Tobacco Use Types Packs/Day Years [...] (1 of 3 - 19+ 3-dose series) 06/1993 COLORECTAL SCREENING 08/22/2019 Colorectal Cancer Screening 08/22/2019 FIT-DNA Q 3 years 08/22/2019 FIT/FOBT Q 1 year 08/22/2019 Flex Sig/CT Colonography Q 5 years 08/22/2019 ZOSTER VACCINE (1 of 2) 2024 INFLUENZA VACCINE (#1) 2024 Insurance RX [employer] RX Member Subscriber Plan / Payer (Ef fective for All Dates) Name:JOSE DE SANTIAGO Relation to Subscriber:Self Name:Jose De Santiago Payer ID:Not on file Group ID:[id number] Type:RX Commercial Address: [place] RX [employer] (INTERNAL) [facility] RX [employer] Commercial RX [employer] (INTERNAL) [facility]
--- OUTSIDE RECORDS SUMMARY | 2025-02-26 00:13 | XMS_ITS | Clinical Summary ---
Author Organization [facility] Address [address] [place] [id number] Care Team Providers Care Hand I Cutter Name Role Phone Gregg Khan MD Primary Care Provider [phone] Allergies Active Allergy Reactions Criticality Noted Date [...] of 3 - 19+ 3-dose series) 1993 Pneumococcal Vaccine: 50+ Ye ars (1 of 1 - PCV) 2024 Zoster Vaccines (1 of 2) 2024 COVID-19 Vaccine (1 - 2023-2 5 season) 2025 Influenza Adult (#1) 2025 Meningococcal B Vaccine Aged Out No l onger eligible based on patient's age to complete this topic Meningococcal Vaccine Aged Out No jacques day eligible based on patient's age to complete this topic RSV Immunizations Under 20 Months Aged Out No longer eligible based on patient's age to complete this topic Insurance [employer] [facility] Care Teams Hand I Cutter Relationship Specialty Start Date End Date Gregg Khan MD [address] [address] PCP - General FAMILY PRACTICE 10/01/18
--- NOTE | 2025-02-26 07:01 | P.HP_ITS ---
History of Present Illness History of Present Illness Chief complaint: left de quervain's tenosynovitis Narrative: Patient seen and examined in pre-operative holding area. No interval change in medical history or symptoms. Patient recalls previous discussion of benefits and alternatives to procedure. Continues to desire to proceed with left first extensor compartment release and left flexor carpi radialis sheath release . Reviewed procedure, post-op expectations and risks including but not limited to bleeding, infection, injury to tendon/nerve/vessel, decreased hand function, stiffness, RSD, no change or worsening of symptoms. I discussed the possible use of assistants and their participation in the case. Patient stated understanding and signed the consent form wishing to proceed. Review of Systems Review of Systems: All systems reviewed & are unremarkable except as noted in HPI and below PMFSH Past Medical History Medical History (Updated 12/30/24 @ 08:55 by Wade Morrison DO) Obesity, Class III, BMI 40-49.9 (morbid obesity) Hyperlipidemia Family history of liver cancer Claustrophobia History of gout Generalized anxiety disorder Surgical History Surgical History History of appendectomy 1986 Family History Family History Father Diabetes mellitus Acute myocardial infarction Heart disease Depression Family history of arthritis Hypertension Mother Pulmonary embolus Benign brain tumor Asthma Family history of arthritis Grandparent Acute myocardial infarction Other Arthritis Hyperlipidemia Social History Social History Smoking packs per day: 2 Smoking cigarettes per day: 40.0 Years smoked: 20 Smoking pack-years: 40.00 Smoking status: Former smoker Tobacco type: cigarettes Second hand tobacco smoke exposure: No Smoking end date: 06/10/05 Additional smoking assessment comments: 16 years ago Alcohol intake: never Drinks per week: 24 Substance use: never Substance use type: does not use Living arrangements: with family Occupation/Education: occupation Gender identity (if verbalized by the patient): Male Sexual Orientation (if Verbalized by the Patient): Straight or Heterosexual Spiritual care concerns: No Agree to blood products: Yes Meds Home Medications and Allergies Home Medications ?Medication ?Instructions ?Recorded ?Confirmed ?Type tadalafil 5 mg tablet (Cialis) 5 mg PO DAILY PRN sexua l activity 08/27/23 02/20/25 Rx #30 tabs triamcinolone acetonide 0.1 % 1 applic topical BID PRN eczema 12/02/24 02/20/25 Rx topical cream #80 grams semaglutide 0.25 mg or 0.5 mg (2 0.25 mg (0.368 mL) mo bcut WEEKLY 12/23/24 02/20/25 Rx mg/3 mL) subcutaneous pen injector #3 mL (Ozempic) lorazepam 1 mg tablet See Rx Instructions PO DAILY 01/17/25 02/20/25 Rx Held on 02/26/25. Anxiety #90 tabs Instructions: Resume on 03/01/25. Do not take with tramadol calcium phosphate,dibasic 77 1 tablet PO DAILY 5 02/20/25 History mg-vitamin D3 400 unit tablet inulin 1.7 gram chewable tablet 1 g PO DAILY 02/20/25 02/20/25 History (Fiber Gummies) omega-3 fatty acids 500 mg PO DAILY 02/20/2507/16 History tramadol 50 mg tablet 50 mg PO Q6H PRN pain #12 ta bs 02/26/25 Rx Allergies Allergy/AdvReac Type Severity Reaction Status Date / Time diclofenac AdvReac Intermediate rash Verified 02/20/25 12:25 Exam Narrative: unchanged Assessment and Plan Assessment and plan (1) De Quervain's tenosynovitis: Code(s): M65.4 - Radial styloid tenosynovitis [de Quervain] Status: Acute Assessment and Plan: cont as above (2) Wrist pain, left: Code(s): M25.532 - Pain in left wrist Status: Acute
--- NOTE | 2025-02-26 07:01 | P.OP_ITS ---
Procedure Note - Detailed Date of Procedure 02/26/25 Pre-op Diagnosis left de quervain's and fcr tenosynovitis Post-op Diagnosis Same Procedure Performed left 1st extensor compartment release and left fcr sheath release Surgeon Bryce Garrido MD Supervisor Dog License Officer deb armenta pa-c Anesthesia MAC Description of Procedure INFORMED CONSENT: The patient was seen and examined and marked in the pre-op area.? The patient signed the consent form. PROCEDURE IN DETAIL:The patient taken back to OR on the stretcher in supine position. Time out performed with anesthesia, surgeon and staff agreeing on patient's name site and surgery to be performed SCDs were placed on the lower extremities and inflated. A tourniquet was placed on {left} upper extremity and antibiotics given IV After anesthesia administered sedation I injected {8}cc 1%lido with epi and 0.5% marcaine plain at the operative sites The?{left upper extremity}?was prepped and draped in sterile fashion the??{left upper extremity} was? exsanguinated with Esmarch bandage and tourniquet inflated to 250mmHg I proceeded with making a longitudinal incision over the left wrist 1st extensor compartment through skin and dermis with a 15 blade scalpel. Littler scissors were used to spread through subcutaneous tissue down to the sheath. I made a incision with 15 blade scalpel on the dorsal aspect of the 1st extensor compartment. Littler scissors were then used to spread above it and below the proximally and distally completing the transection entirely. Ragnell retractors were used to withdraw the APL and EPB tendons for inspection. The tendons were free of masses but there was a notable amount of synovitis that was resected with littler scissors. No sub sheaths were identified but there were multiple slips of apl. I irrigated with normal saline and closed with 3-0 Vicryl for dermis and 4-0 Monocryl for subcuticular closure. Next I took my attention to the volar wrist were made a longitudinal incision over the FCR through skin and dermis with a 15 blade scalpel. Littler scissors were used to spread down to the FCR. I proceeded with synovectomy and releasing the FCR sheath with Littler scissors and 15 blade scalpel. The tendon appeared intact without masses or fraying after synovectomy I irrigated with normal saline and closed with 3-0 Vicryl for dermis and 4-0 Monocryl for subcuticular closure. A dressing of Dermabond, 4x4, sierra, and a volar splint was applied for patient safety, security, and comfort and secured with an elva bandage after the tourniquet was let down noting the hand was warm and well perfused. The patient was then awaken from anesthesia and transferred to the recovery room in stable condition.? Complications - none EBL- 0cc Disposition - home in stable condition deb armenta pa-c was essential for positioning, retraction, closure and dressing placement G Billing Surgery - Charge Forward: Surgery Billing ([id number] same for deb adding )
[2025-02-26 08:00] VITALS: BP 128/71; PULSE 63; RESP 14; TEMP 36.4; O2SAT 100
[2025-02-26 08:05] VITALS: BMI 36.0
[2025-02-26] MEDS: LACTATED RINGERS 1,000 ML 30 ML IV CONT (08:30)
[2025-02-26] MEDS: ACETAMINOPHEN 500 MG TABLET 1000 MG PO (08:45)
--- NOTE | 2025-02-26 09:53 | P.PNAN_ITS ---
Anes - Initial Pre Proc Eval Procedure: Operation Date: 02/26/25 09:45 Proposed Procedures p Left First Extensor Compartment Release, with Flexor Carpi Radialis Sheath Release - Bryce Garrido MD Date/Time: 02/26/25 09:53 Surgeon: Bryce Garrido MD Pre Op Diagnosis: left de quervain's tenosynovitis Patient Data Age: 49 Gender: M Height: 1.83 m Weight: 120.4 kg Last Vital Signs Temp 36.4 C 02/26/25 08:00 Pulse 63 02/26/25 08:00 Resp 14 02/26/25 08:00 BP 128/71 02/26/25 08:00 Pulse Ox 100 02/26/25 08:00 O2 Del Method Room Air 02/26/25 08:00 Allergies Allergy/AdvReac Type Severity Reaction Status Date / Time diclofenac AdvReac Intermediate rash Verified 02/26/25 09:44 Home Medications ?Medication ?Instructions ?Recorded ?Confirmed ?Type tadalafil 5 mg tablet (Cialis) 5 mg PO DAILY PRN sexua l activity 08/27/23 02/20/25 Rx #30 tabs triamcinolone acetonide 0.1 % 1 applic topical BID PRN eczema 12/02/24 02/20/25 Rx topical cream #80 grams semaglutide 0.25 mg or 0.5 mg (2 0.25 mg (0.368 mL) mo bcut WEEKLY 12/23/24 02/26/25 Rx mg/3 mL) subcutaneous pen injector #3 mL (Ozempic) lorazepam 1 mg tablet See Rx Instructions PO DAILY 01/17/25 02/20/25 Rx Held on 02/26/25. Anxiety #90 tabs Instructions: Resume on 03/01/25. Do not take with tramadol calcium phosphate,dibasic 77 1 tablet PO DAILY 5 02/26/25 History mg-vitamin D3 400 unit tablet inulin 1.7 gram chewable tablet 1 g PO DAILY 02/20/25 02/26/25 History (Fiber Gummies) omega-3 fatty acids 500 mg PO DAILY 02/20/2501/13 History tramadol 50 mg tablet 50 mg PO Q6H PRN pain #12 ta bs 10/08/25 Rx Patient hx anesthesia problems: none Family hx anesthesia problems: none Results Review: All pre-operative results and documents have been reviewed as part of the pre- operative evaluation. [facility] Past Medical History Medical History Obesity, Class III, BMI 40-49.9 (morbid obesity) Hyperlipidemia Family history of liver cancer Claustrophobia History of gout Generalized anxiety disorder Surgical History Surgical History History of appendectomy 1986 Family History Family History Father Diabetes mellitus Acute myocardial infarction Heart disease Depression Family history of arthritis Hypertension Mother Pulmonary embolus Benign brain tumor Asthma Family history of arthritis Grandparent Acute myocardial infarction Other Arthritis Hyperlipidemia Social History Social History Smoking packs per day: 2 Smoking cigarettes per day: 40.0 Years smoked: 20 Smoking pack-years: 40.00 Smoking status: Former smoker Tobacco type: cigarettes Second hand tobacco smoke exposure: No Smoking end date: 06/10/05 Additional smoking assessment comments: 16 years ago Alcohol intake: never Drinks per week: 24 Substance use: never Substance use type: does not use Living arrangements: with family Occupation/Education: occupation Gender identity (if verbalized by the patient): Male Sexual Orientation (if Verbalized by the Patient): Straight or Heterosexual Spiritual care concerns: No Agree to blood products: Yes Anes - Eval Final PreProcedure Day of Procedure 02/26/25 09:53 Patient weight: obese Heart: regular rate and rhythm Lungs: decreased breath sounds Airway: Mallampati scale class II Neurological: alert and oriented Last oral intake: >/= 8 hours ASA classification: III Emergent: no Anesthetic plan: proceed Anesthesia type and monitoring: general GIVS and standard monitoring Results Review: All pre-operative results and documents have been reviewed as part of the pre- operative evaluation. Informed Consent: The patient's anesthetic plan and its attendant risks and benefits were discussed with the patient/family/POA. Questions were solicited and answers provided to the satisfaction of the patient/family/POA.
[2025-02-26] MEDS: ceFAZolin 3 GM/D5W 100 ML 100 ML IVPB (09:57)
[2025-02-26] MEDS: BUPivacaine HCL 0.5% 10 ML AMP INFILTRATE (10:06)
[2025-02-26] MEDS: LIDO 1%/EPINEPHRINE 1:100,000 50 ML VIAL 10 ML INFILTRATE (10:06)
[2025-02-26 10:24] VITALS: BP 118/63; PULSE 72; RESP 17; O2SAT 96
[2025-02-26 10:50] VITALS: BP 119/63; PULSE 55; RESP 14; O2SAT 95
== END 2025-02-26 11:13 | disposition home or self-care (01) ==
PROVIDERS: PCP Family Medicine Adolescent Medicine; Visit Provider Plastic Surgery
PROC: (CPT 26045; principal; 2025-02-26 09:45)
DX: M65.4 Radial styloid tenosynovitis [de Quervain] (principal); E78.5 Hyperlipidemia, unspecified; F41.9 Anxiety disorder, unspecified; F40.240 Claustrophobia; E66.9 Obesity, unspecified; Z68.36 Body mass index [BMI] 36.0-36.9, adult; Z79.85 Long-term (current) use of injectable non-insulin antidiabetic drugs; Z79.891 Long term (current) use of opiate analgesic; Z98.890 Other specified postprocedural states; Z87.891 Personal history of nicotine dependence; Z80.0 Family history of malignant neoplasm of digestive organs; Z82.49 Family history of ischemic heart disease and other diseases of the circulatory system
CPT/HCPCS: 25118; 26145; A9270; J0690; J2003; J2004; J2250; J2704; J3010; J7120